=== PATIENT | female | born 1960 ===

== ENCOUNTER → 2019-08-21 | Outpatient (CLI) | payer OTHER ==
[~2019-08-21] MED LIST: INDERAL LA120 MG; SYNTHROID100 MCG
== END | disposition home or self-care (01) ==
LOC: MAMO-SONO 10:12
DX: Z12.31 Encounter for screening mammogram for malignant neoplasm of breast (principal); Z12.39 Encounter for other screening for malignant neoplasm of breast

== ENCOUNTER → 2019-09-13 | Outpatient (CLI) | payer OTHER | END | disposition home or self-care (01) | LOC: SONOGRAMA 11:40 | DX: E04.8 Other specified nontoxic goiter (principal) ==

== ENCOUNTER 2020-10-07 14:28 | Outpatient (CLI) | payer OTHER | END 2020-10-07 18:00 | disposition home or self-care (01) | LOC: PPH VACUNA 14:28 | DX: Z23 Encounter for immunization (principal) ==

== ENCOUNTER → 2020-12-30 | Outpatient (CLI) | payer OTHER | END | disposition home or self-care (01) | LOC: TOM 13:19 | PROVIDERS: ATTEND Surgery | DX: E04.1 Nontoxic single thyroid nodule (principal) ==

== ENCOUNTER 2021-10-19 14:07 | Outpatient (CLI) | payer OTHER ==
[~2021-10-19 14:07] MED LIST changes: +DICLOFENAC POTA50 MG PO; +NORFLEX100MG PO
== END 2021-10-19 14:13 | disposition home or self-care (01) ==
LOC: MAMO-SONO 14:07
DX: N60.11 Diffuse cystic mastopathy of right breast (principal); N64.59 Other signs and symptoms in breast; Z12.31 Encounter for screening mammogram for malignant neoplasm of breast

== ENCOUNTER 2022-02-03 08:00 | Outpatient (CLI) | payer OTHER | END 2022-02-03 08:30 | disposition home or self-care (01) | LOC: PPH VACUNA 08:00 | PROVIDERS: ATTEND Emergency Medicine Pediatric Emergency Medicine | DX: Z23 Encounter for immunization (principal) ==

== ENCOUNTER 2022-10-21 14:04 | Outpatient (CLI) | payer OTHER | END 2022-10-21 14:13 | disposition home or self-care (01) | LOC: MAMO-SONO 14:04 | PROVIDERS: ATTEND Obstetrics & Gynecology | DX: N63.12 Unspecified lump in the right breast, upper inner quadrant (principal); N63.21 Unspecified lump in the left breast, upper outer quadrant ==

== ENCOUNTER 2023-02-22 08:30 | Outpatient (CLI) | payer OTHER | END 2023-02-22 08:33 | disposition home or self-care (01) | LOC: RAD 08:30 | DX: S83.005A Unspecified dislocation of left patella, initial encounter (principal); S83.004A Unspecified dislocation of right patella, initial encounter ==

== ENCOUNTER 2023-12-14 07:24 | Outpatient (CLI) | payer OTHER | END 2023-12-14 07:59 | disposition home or self-care (01) | LOC: MAMO-SONO 07:24 | DX: N63.21 Unspecified lump in the left breast, upper outer quadrant (principal); N63.12 Unspecified lump in the right breast, upper inner quadrant ==

== ENCOUNTER 2024-08-27 06:22 | Outpatient (CLI) | payer OTHER | END 2024-08-27 06:25 | disposition home or self-care (01) | LOC: RAD 06:22 | PROVIDERS: ATTEND Orthopaedic Surgery Sports Medicine | DX: M17.11 Unilateral primary osteoarthritis, right knee (principal) ==

== ENCOUNTER 2025-01-29 08:10 | Outpatient (CLI) | payer OTHER | END 2025-01-29 08:13 | disposition home or self-care (01) | LOC: RAD 08:10 | PROVIDERS: ATTEND Internal Medicine Pulmonary Disease | DX: J45.20 Mild intermittent asthma, uncomplicated (principal) ==

== ENCOUNTER 2025-01-31 07:30 | Outpatient (CLI) | payer OTHER | END 2025-01-31 07:33 | disposition home or self-care (01) | LOC: MAMO-SONO 07:30 | DX: R19.00 Intra-abdominal and pelvic swelling, mass and lump, unspecified site (principal); N80.03 Adenomyosis of the uterus; N63.21 Unspecified lump in the left breast, upper outer quadrant; N63.12 Unspecified lump in the right breast, upper inner quadrant ==

== ENCOUNTER 2025-03-22 08:02 | Outpatient (CLI) | payer OTHER | END 2025-03-22 08:04 | disposition home or self-care (01) | LOC: SONOGRAMA 08:02 | PROVIDERS: ATTEND Internal Medicine Endocrinology, Diabetes & Metabolism | DX: E04.8 Other specified nontoxic goiter (principal) ==

== ENCOUNTER 2025-06-06 06:48 | Outpatient (CLI) | payer OTHER | END 2025-06-06 06:50 | disposition home or self-care (01) | LOC: SONOGRAMA 06:48 | PROVIDERS: ATTEND Obstetrics & Gynecology Gynecology | DX: R10.2 Pelvic and perineal pain (principal) ==

== ENCOUNTER 2025-07-03 06:44 | Outpatient (CLI) | payer OTHER | END 2025-07-03 06:51 | disposition home or self-care (01) | LOC: RAD 06:44 | PROVIDERS: ATTEND Obstetrics & Gynecology Gynecology | DX: Z01.818 Encounter for other preprocedural examination (principal) ==

== ENCOUNTER → 2025-07-04 06:07 | Outpatient (CLI) | payer OTHER ==
[2025-07-04 07:15] LABS: BASO % 0.6 % (0.1-1.2); EOS # 0.14 (0.04-0.54); EOS % 2.6 % (0.7-7.0); LYMPH # 1.40 (1.18-3.74); LYMPH % 26.2 % (19.3-53.1); MEAN PLATELET VOLUME 9.90 fl (9.4-12.4); MONO # 0.36 (0.24-0.82); MONO % 6.7 % (4.7-12.5); NEUT # 3.39 (1.56-6.13); NEUT % 63.5 % (34.0-71.1); RED CELL DISTRIBUTION WIDTH 12.0 % (11.6-14.4)
[2025-07-04 07:22] LABS: ERYTHROCYTE SEDIMENTATION RATE 26 mm/hr (0-30)
[2025-07-04 07:30] LABS: URINE APPEARANCE Clear; URINE BILIRRUBIN Negative (NEGATIVE); URINE BLOOD Trace; URINE COLOR Yellow; URINE GLUCOSE Negative (NEGATIVE); URINE KETONE Negative (NEGATIVE); URINE LEUKOCYTE Negative; URINE NITRATE Negative; URINE PROTEIN Negative (NEGATIVE); URINE UROBILINOGEN 0.2 E.U./dl
[2025-07-04 07:33] LABS: URINE RBC 9.6 uL (0.0-20.8)
[2025-07-04 07:35] LABS: INR 0.94
[2025-07-04 07:50] LABS: URINE BACTERIA 1.2 uL (0.0-1933); URINE CAST 0.00 uL (0.0-1.40); URINE EPITHELIAL CELLS 1.2 uL (0.0-38.8); URINE WBC 1.6 uL (0.0-23.2)
[2025-07-04 07:59] LABS: ALT/SGPT 19 U/L (12-78); AST/SGOT 19 U/L (15-37); BILIRUBIN TOTAL 1.01 mg/dL (0.3-1.2); BUN CREA RATIO 47 (7.0-25.0); CHOL HDL RATIO 3.1 (0-5.0); CREATININE SERUM 0.66 mg/dL (0.55-1.02); FREE TRIODOTIRONINE 2.19 pg/ml (2.18-3.98); GFR 90.16; GLOBULINA 3.7 G/DL (2.4-3.5); GLUCOSE FASTING 88 mg/dL (65-100); HDL 66 mg/dl (40-60); LDL 124 mg/dl (0-130); OSMOLALITY SERUM 283 MOSM/KG (275-295); T4 TOTAL 12.47 UG/DL (4.8-13.9); TSH 1.100 uIU/mL (0.358-3.74); VLDL 14 (0-39)
[2025-07-04 09:11] LABS: ob NEGATIVE (NEGATIVE)
== END | disposition home or self-care (01) ==
LOC: LAB 06:07
PROVIDERS: ATTEND Internal Medicine
DX: J45.30 Mild persistent asthma, uncomplicated (principal); R00.2 Palpitations; E55.9 Vitamin D deficiency, unspecified; M19.91 Primary osteoarthritis, unspecified site; R73.9 Hyperglycemia, unspecified; Z13.220 Encounter for screening for lipoid disorders; E03.9 Hypothyroidism, unspecified; Z12.10 Encounter for screening for malignant neoplasm of intestinal tract, unspecified; D64.9 Anemia, unspecified; D68.00 Von Willebrand disease, unspecified; I10 Essential (primary) hypertension; N39.0 Urinary tract infection, site not specified

== ENCOUNTER 2025-07-15 06:00 | Day surgery (SDC) | payer OTHER ==
[2025-07-11 07:54] VITALS: BP 179/76
[~2025-07-15] VITALS: Ht 172.7 cm; Wt 98.9 kg
[~2025-07-15 06:00] MED LIST changes: +SYNTHROID125 MCG PO; +TOPROL XL50 M1; +VITAMINA D; +[UNRECOGNIZED DRUG - OTHER]
[2025-07-15] MEDS ORDERED: POVIDONE-IODINE 118 ML BOTT TOP ONE (07:05)
[2025-07-15] MEDS ORDERED: ENALAPRILAT DIHYDRATE 1.25 MG/ML VIAL IV ONE (07:41)
[2025-07-15] MEDS ORDERED: IBU600 MG PO (08:39)
== END 2025-07-15 11:15 | disposition home or self-care (01) ==
LOC: CIR.AMB 06:00
PROVIDERS: ATTEND Obstetrics & Gynecology Gynecology
DX: N84.0 Polyp of corpus uteri (principal); Z88.0 Allergy status to penicillin; Z88.6 Allergy status to analgesic agent; Z88.5 Allergy status to narcotic agent

== ENCOUNTER 2025-09-18 07:08 | Outpatient (CLI) | payer OTHER ==
[~2025-09-18 07:08] MED LIST changes: +IBU600 MG PO
[2025-09-18 08:27] LABS: CHOL HDL RATIO 2.8 (0-5.0); HDL 74.0 mg/dl (40-60); LDL 124.0 mg/dl (0-130); TSH 2.18 uIU/mL (0.358-3.74); VLDL 11.0 (0-39)
[2025-09-18 08:32] LABS: T4 FREE 1.53 NG/ML (0.76-1.46)
== END 2025-09-18 07:13 | disposition home or self-care (01) ==
LOC: LAB 07:08
DX: E03.8 Other specified hypothyroidism (principal); E03.9 Hypothyroidism, unspecified; E78.00 Pure hypercholesterolemia, unspecified